=== PATIENT | female | born 1985 ===

== ENCOUNTER 2022-09-17 12:21 | Emergency (ER) | payer MEDICARE ==
[2022-09-17 14:46] LABS: CORONAVIRUS COVID-19 NAA NEGATIVE (NEGATIVE); INFLUENZA A NAA NEGATIVE (NEGATIVE); INFLUENZA B NAA NEGATIVE (NEGATIVE)
== END 2022-09-17 15:04 | disposition home or self-care (01) ==
LOC: MW.ED 12:21
DX: J40 Bronchitis, not specified as acute or chronic (principal); M25.562 Pain in left knee; G89.29 Other chronic pain; Z20.822 Contact with and (suspected) exposure to COVID-19
CPT/HCPCS: 0240U; 73562; 99283